=== PATIENT | female | born 1940 | race African-American/Black ===

== ENCOUNTER 2018-08-19 15:53 | Emergency (ER) | payer MEDICARE, BC ==
[~2018-08-19] VITALS: Ht 162.6 cm; Wt 78.5 kg
[2018-08-19] MEDS ORDERED: ATORVASTATIN CA20 MG ORAL (16:01)
[2018-08-19] MEDS ORDERED: BENICAR40 MG ORAL (16:01)
[2018-08-19 16:10] VITALS: BP 119/59
--- NOTE | 2018-08-19 17:11 | Diagnostic Imaging Report ---
Indication: Left shoulder pain Technique: 3 views of the left shoulder Comparison: None Findings: Axillary clips are seen in the left axilla and there is suggestion of a left breast implant. There is sclerosis of the superior aspect of the humeral head, with suggestion of one or more cortical breaks and subchondral crescentic lucencies, slight flattening of the superior aspect of the humeral head. No definite acute fractures otherwise. The joint spaces are preserved. Impression: Abnormal appearance to the left humeral head, raising concern for avascular necrosis. Consider MRI for better characterization Other findings as noted
--- NOTE | 2018-08-19 17:28 | Emergency Room Report ---
History of Present Illness General Chief Complaint: Upper Extremity Injury Source: Patient Present Illness HPI 78-year-old female presents emergency department complaining of 10 out of 10 in severity pain to the left shoulder progressive 2 weeks. Patient denies trauma or fall. Patient reports previous injury to this extremity 2 years ago. Patient states that her pain is exacerbated upon attempts to raise her arm as well as when she attempts to lift certain objects. Patient reports that her pain is intermittent. Patient denies paresthesias she states that on occasion she has had sharp pain radiating down her arm she denies radiation at the moment. Patient denies neck pain or previous neck injury. Denies numbness tingling or loss of sensation or gross motor movements of the extremities, incontinence of bowel or bladder. Denies CP, Palpitations, LOC, AMS, dizziness, Changes in Vision, weakness or a sudden severe headache. Allergies: Coded Allergies: CODEINE (Verified Allergy, Unknown, 08/19/18) SHELLFISH DERIVED (Verified Allergy, Unknown, 08/19/18) Patient History Past Medical History: see triage record Past Surgical History: none Pertinent Family History: none Reviewed Nursing Documentation: PMH: Agreed; PSxH: Agreed Nursing Documentation-PMH Past Medical History: No History, Except For Hx Cardiac Problems: Yes - heart murmur, high cholesterol Hx Hypertension: Yes Hx Cancer: Yes History Of Psychiatric Problem: Yes - anxiety Review of Systems All Other Systems: negative except mentioned in HPI Physical Exam Vital Signs Date Time Temp Pulse Resp B/P (MAP) Pulse Ox O2 Delivery O2 Flow Rate FiO2 08/19/18 15:56 98.2 75 18 119/59 96 Room Air Sp02 EP Interpretation: reviewed, normal General Appearance: no apparent distress, alert, GCS 15, non-toxic Head: normocephalic, atraumatic Eyes: bilateral eye normal inspection, bilateral eye PERRL ENT: hearing grossly normal, normal voice Neck: full range of motion, no bony tend Respiratory: lungs clear, normal breath sounds, speaking full sentences Cardiovascular #1: regular rate, rhythm, normal capillary refill Musculoskeletal: back normal, gait/station normal, normal range of motion, tender - to the lateral left shoulder, pain with raising above the 50* angle, no clicking, no obvious deformity, NVI. Neurologic: alert, oriented x3, responsive, motor strength/tone normal, sensory intact, speech normal, grossly normal Psychiatric: judgement/insight normal Skin: normal color, no rash, warm/dry, well hydrated Medical Decision Making VITA Attestation Dr. Sanchez is my supervising Physician whom patient management has been discussed with. Diagnostic Impression: Primary Impression: Shoulder pain, left Qualified Codes: M25.512 - Pain in left shoulder ER Course 78-year-old female presents emergency department complaining of 10 out of 10 in severity pain to the left shoulder progressive 2 weeks. Patient denies trauma or fall. Patient reports previous injury to this extremity 2 years ago. Patient states that her pain is exacerbated upon attempts to raise her arm as well as when she attempts to lift certain objects. Patient reports that her pain is intermittent. Patient denies paresthesias she states that on occasion she has had sharp pain radiating down her arm she denies radiation at the moment. Patient denies neck pain or previous neck injury. Denies numbness tingling or loss of sensation or gross motor movements of the extremities, incontinence of bowel or bladder. Denies CP, Palpitations, LOC, AMS, dizziness, Changes in Vision, weakness or a sudden severe headache. Ddx considered but are not limited to Fracture, dislocation, contusion, Sprain/ Strain/Spasm. Vital signs: are WNL, pt. is afebrile H&PE are most consistent with musculoskeletal injury will perform imaging to r/ o fractures/dislocations. ORDERS: - X-ray Left Shoulder 3 views - negative for fx, Dislocation, or significant soft tissue injury, per preliminary read in ED, and signed by VITA Perez, my supervising physician has reviewed, and agrees with my interpretation. ED INTERVENTIONS: - [place] PO - - Left arm Sling applied by ekg tech. Pt. remains neurovascularly intact. DISCHARGE: At this time pt. is stable for d/c to home. Will provide printed patient care instructions, and any necessary prescriptions. Care plan and follow up instructions have been discussed with the patient prior to discharge. Other X-Ray Diagnostic Results Other X-Ray Diagnostic Results : X-Ray ordered: Left Shoulder # of Views/Limited Vs Complete: 3 View Indication: Pain EP Interpretation: Yes PA Xray: Interpretation reviewed, by supervising MD, and agrees with findings. Interpretation: no dislocation, no soft tissue swelling, no fractures Impression: No acute disease Electronically Signed by: Eusebia Perez PA-C Last Vital Signs Date Time Temp Pulse Resp B/P (MAP) Pulse Ox O2 Delivery O2 Flow Rate FiO2 08/19/18 16:10 98.2 83 18 119/59 96 Room Air Status: improved Disposition: HOME, SELF-CARE Condition: Stable Scripts Meloxicam* (MELOXICAM*) 15 Mg Tablet 15 MG PO DAILY for 10 Days, #10 TAB Prov: Eusebia Perez 08/19/18 Patient Instructions: Shoulder Pain, [id number] Additional Instructions: Take medications as directed. Follow up with an REAL ESTATE ECONOMIST in 3-5 days, even if your symptoms have resolved. If symptoms persist MRI may be required at the discretion of your PCP or Ortho Specialist. --Please review list of primary care clinics, if you do not already have a primary care provider who can give you an Orthopedic Referral. Return sooner to ED if new symptoms occur, or current symptoms become worse. - Please note that this Emergency Department Report was dictated using [employer] technology software, occasionally this can lead to erroneous entry secondary to interpretation by the dictation equipment. Eusebia Perez Aug 19, 2018 17:28
[2018-08-19] MEDS ORDERED: HYDROcodone/Acetamin 5/325 tab ORAL ONE (17:30)
[2018-08-19] MEDS ORDERED: MELOXICAM15 MG PO (17:52)
[2018-08-19 18:00] VITALS: BP 119/59
== END 2018-08-19 18:00 | disposition home or self-care (01) ==
LOC: EMR 16:20
DX: M25.512 Pain in left shoulder (principal); Z88.6 Allergy status to analgesic agent; Z91.013 Allergy to seafood; I10 Essential (primary) hypertension; Z85.9 Personal history of malignant neoplasm, unspecified; F41.9 Anxiety disorder, unspecified; E78.00 Pure hypercholesterolemia, unspecified
CPT/HCPCS: 99283